=== PATIENT | male | born 1945 ===

== ENCOUNTER 2019-11-21 07:25 | Day surgery (SDC) | payer MEDICARE ==
[~2019-11-21] VITALS: Ht 188 cm; Wt 105.0 kg
[2019-11-21] MEDS ORDERED: SODIUM CHLORIDE 0.9% 1,000 ML IV SCH (07:45)
[2019-11-21 07:51] VITALS: BP 137/61
[2019-11-21] MEDS ORDERED: CYAN500L4 PO (08:08)
[2019-11-21] MEDS ORDERED: ALBU6.7H8 INH (08:08)
[2019-11-21] MEDS ORDERED: SIMV10TA18 PO (08:08)
[2019-11-21] MEDS ORDERED: CHOL10003 PO (08:08)
[2019-11-21] MEDS ORDERED: APIX5TAB PO (08:08)
[2019-11-21] MEDS ORDERED: METF500T17 PO (08:08)
[2019-11-21] MEDS ORDERED: CARV25TA12 PO (08:08)
[2019-11-21] MEDS ORDERED: IBRU140T PO (08:08)
[2019-11-21] MEDS ORDERED: TIOT4MIS5 INH (08:08)
[2019-11-21] MEDS ORDERED: IPRA4AER INH (08:08)
[2019-11-21] MEDS ORDERED: DIGO125T85 PO (08:08)
[2019-11-21 08:15] LABS: MEAN CORPUSCULAR HGB CONC 32.3 g/dL (33.2-36.2); MEAN CORPUSCULAR VOLUME 99.3 fL (81-97); MEAN PLATELET VOLUME 9.3 fL (7.4-10.4); PLATELET COUNT 181 x10^3/uL (130-400); RED BLOOD COUNT 4.32 x10^6/uL (4.38-5.82); RED CELL DISTRIBUTION WIDTH 13.9 % (9.4-14.8)
[2019-11-21 08:24] LABS: ANION GAP 5 mmol/L (5-15); CALCIUM 8.1 mg/dL (8.5-10.1); CHLORIDE 110 mmol/L (98-107); CREATININE 0.87 mg/dL (0.7-1.3)
[2019-11-21 08:40] LABS: MD YES
[2019-11-21 09:02] LABS: EOS#(MANUAL) 0.16 x10^3/uL (0.0-0.4); EOS% (MANUAL) 1 % (1-7)
[2019-11-21 09:03] LABS: LYMPH#(MANUAL) 12.88 x10^3/uL (1-3.4); LYMPHS% (MANUAL) 80 % (22-44); MONOS#(MANUAL) 0.16 x10^3/uL (0.3-2.7); MONOS% (MANUAL) 1 % (2-9); SEGS% (MANUAL) 18 % (42-75)
[2019-11-21 09:04] LABS: <PLATELET ESTIMATE> ADEQUATE; <PLT MORPHOLOGY> NORMAL PLT MORPH; SMUDGE CELLS 1+
[2019-11-21] MEDS ORDERED: FENTANYL PF 100 MCG/2ML ONE (09:21)
[2019-11-21] MEDS ORDERED: MIDAZOLAM 1 MG/ML, 5ML ONE (09:21)
[2019-11-21] MEDS ORDERED: CEFAZOLIN 1,000 MG ONE (09:21)
[2019-11-21] MEDS ORDERED: CEFAZOLIN PMX 1GM/50ML 50 ML ONE (09:21)
[2019-11-21] MEDS ORDERED: LIDOCAINE 2%, 20ML ONE (09:21)
[2019-11-21] MEDS ORDERED: Hold all anticoagulants for 24 hours MC PRN (10:30)
[2019-11-21] MEDS ORDERED: HYDROcodone/APAP 5/325 TABLET PO PRN (10:30)
[2019-11-21] MEDS ORDERED: SODIUM CHLORIDE FLUSH 10ML SYR IVF SCH (21:00)
== END 2019-11-21 11:31 | disposition home or self-care (01) ==
LOC: CACL 07:25
PROVIDERS: ATTEND Internal Medicine Cardiovascular Disease
DX: Z45.02 Encounter for adjustment and management of automatic implantable cardiac defibrillator (principal); I48.0 Paroxysmal atrial fibrillation; I47.2 Ventricular tachycardia; I42.0 Dilated cardiomyopathy; I10 Essential (primary) hypertension; E11.9 Type 2 diabetes mellitus without complications; J44.9 Chronic obstructive pulmonary disease, unspecified; E78.2 Mixed hyperlipidemia; Z79.01 Long term (current) use of anticoagulants; Z79.84 Long term (current) use of oral hypoglycemic drugs; Z79.899 Other long term (current) drug therapy; Z85.828 Personal history of other malignant neoplasm of skin; Z88.8 Allergy status to other drugs, medicaments and biological substances
CPT/HCPCS: 33263; 36415; 71046; 80048; 85025; 99156; 99157; C1721; J0690; J2250; J3010

== ENCOUNTER → 2020-04-12 | Outpatient (CLI) | payer MEDICARE ==
[~2020-04-12] MED LIST: ALBU6.7H8 INH; APIX5TAB PO; CARV25TA12 PO; CHOL10003 PO; CYAN500L4 PO; DIGO125T85 PO; IBRU140T PO; IPRA4AER INH; METF500T17 PO; SIMV10TA18 PO; TIOT4MIS5 INH
== END | disposition home or self-care (01) ==
LOC: CVU 07:51
PROVIDERS: ATTEND Internal Medicine Cardiovascular Disease
DX: I37.1 Nonrheumatic pulmonary valve insufficiency (principal); I42.0 Dilated cardiomyopathy
CPT/HCPCS: 93306